=== PATIENT | female | born 1950 | race Caucasian/White ===

== ENCOUNTER → 2016-05-25 15:23 | Outpatient (CLI) | payer MEDICARE, OTHER ==
[~2016-05-25 15:23] MED LIST: BAYER CHEWABLE81 MG PO; LASIX20 MG PO; LIPITOR10 MG PO; LISINOPRIL10 MG PO; OMEPRAZOLE20 M1 PO
[2016-07-24 09:07] VITALS: BMI 30.1
== END | disposition home or self-care (01) ==
LOC: D.ER 14:41 → D.CT 15:23 → EDBD 15:30 → EDSTATUS 15:30
DX: R06.00 Dyspnea, unspecified (principal)

== ENCOUNTER 2016-07-24 07:59 | Outpatient (CLI) | payer MEDICARE, OTHER ==
[~2016-07-24] VITALS: Ht 160 cm; Wt 77.3 kg
--- NOTE | ~2016-07-24 | HEMODYNAMI ---
PATIENT:ARGENIS NAVA MEDICAL RECORD: [id number] : 48 LOCATION:[facility] ADMISSION DATE: 07/24/16 Generatedon:07/24/201611:05 Patient name: ARGENIS NAVA Patient #: [id number] : 1950 Date of study: 07/24/2016 Page: Of Hemodynamic Procedure Report Patient Data Patient Demographics Procedure consent was obtained First Name: ARGENIS Gender: Female Last Name: ELIJAH : 1950 Patient #: [id number] Age: 66 year(s) Race: SSN: [id number] Additional ID: [id number] Contact details Address: [address] [place] [address] State: [place] City: [facility] Zip code: [address] Admission Admission Data Admission Date: 07/24/2016 Admission Time: 7:59 Arrival Date: 07/24/2016 Arrival Time: 10:00 Admit Source: Other Insurance Payor: Medicare Height (in.): 65 BSA: 1.85 (m2) Height (cm.): 165.1 BMI: 28.29 (kg/m2) Weight (lbs.): 170 Weight (kg.): 77.11 Lab Results Lab Result Date: 07/24/2016 Lab Result Time: 0:00 Biochemistry Name Units Result Min Max BUN mg/dl 23 --(----)-* 7 18 Creatinine mg/dl 0.9 --(-*--)-- 0.6 1.3 CBC Name Units Result Min Max Hemoglobin g/dl 12.6 -*(----)-- 13.5 17.5 Procedure Procedure Types Cath Procedure Diagnostic Procedure [facility] w/Coronaries Miscellaneous Procedures Procedure Description Procedure Date Procedure Date: 07/24/2016 Procedure Start Time: 10:50 Procedure End Time: 10:56 Procedure Staff Name Function Ronal Koenig MD Performing Physician Rosalina Hyde RT Scrub Viviane López RN Nurse Danielle Beverly RT Monitor Procedure Data Cath Procedure Fluoroscopy Diagnostic fluoroscopy Total fluoroscopy Time: 0.9 time: 0.9 min min Diagnostic fluoroscopy Total fluoroscopy dose: 75 dose: 75 mGy mGy Contrast Material Contrast Material Type Amount (ml) Isovue 300 49 Entry Location Entry Primary Successful Side Size Upsize Upsize Entry Closure Succes sful Closure Location (Fr) 1 (Fr) 2 (Fr) Remarks Device Remarks Femoral Right 5 Fr Exoseal artery Estimated blood loss: 10 ml Diagnostic catheters Device Type Used For End Catheter Placement Cordis 5Fr Pigtail Ventriculography Catheter (MP) Cordis 5Fr JL 4.0 Procedure Catheter (MP) Cordis 5Fr 3DRC Catheter Procedure (MP) Procedure Complications No complications Procedure Medications Medication Administration Route Dosage Oxygen NC 2 l/min Lidocaine 2% added to field 20 Heparin Flush Bag added to field 2 bags (1000units/500ml NS) 0.9% NaCl I.V. 100 ml/hr Benadryl I.V. 50 mg Versed I.V. 2 mg Fentanyl I.V. 100 mcg Versed I.V. 2 mg Fentanyl I.V. 100 mcg Versed I.V. 0.5 mg Fentanyl I.V. 25 mcg Fentanyl I.V. 25 mcg Hemodynamics Rest BSA: 1.85 (m2) HGB: 12.6 (g/dl) O2 Consumption: Estimated: 166.95 (ml/min) O2 Co nsumption indexed: Estimated:90.24 (ml/min/m) Heart Rate: 63 (bpm) Snapshots Pre Cath Intra NCS Post Cath Vital Signs Time Heart Resp SPO2 NIBP (mmHg) Rhythm Pain Sedation Rate (ipm) (%) Status Level (bpm) 10:09:45 65 15 98 141/66(136) NSR 0 (11) 10(A) , No pain 10:14:05 67 18 100 134/68(108) NSR 0 (11) 10(A) , No pain 10:18:23 58 17 96 123/63(85) NSR 0 (11) 10(A) , No pain 10:22:43 73 18 97 112/64(81) NSR 0 (11) 10(A) , No pain 10:27:52 62 16 98 130/67(100) NSR 0 (11) 10(A) , No pain 10:32:17 64 17 99 123/65(85) NSR 0 (11) 10(A) , No pain 10:36:39 63 16 98 118/62(92) NSR 0 (11) 10(A) , No pain 10:40:57 64 16 100 113/65(85) NSR 0 (11) 10(A) , No pain 10:45:15 64 17 99 123/61(103) NSR 0 (11) 10(A) , No pain 10:49:35 63 19 100 119/62(82) NSR 0 (11) 9(A) , No pain 10:53:51 63 16 94 130/74(101) NSR 0 (11) 9(A) , No pain 11:03:10 69 17 97 134/82(131) NSR 0 (11) 10(A) , No pain Medications Time Medication Route Dose Verified Delivered Reason Notes Effec tiveness by by 0:53:42 Fentanyl I.V. 25 Ronal Buffie for mcg Arya López RN sedation 10:27:37 Oxygen NC 2 Ronal Buffie used for l/min Arya López RN procedure 10:27:43 Lidocaine 2% added 20ml Ronal Buffie used for to vial Arya López RN procedure field 10:27:53 Heparin Flush added 2 Ronal Buffie used for Bag to bags Arya López RN procedure (1000units/500ml field NS) 10:28:07 0.9% NaCl I.V. 100 Ronal Buffie Per ml/hr Arya López RN physician 10:28:24 Benadryl I.V. 50 mg Ronal Buffie used for Arya López RN procedure 10:44:03 Versed I.V. 2 mg Ronal Buffie for Arya López RN sedation 10:44:10 Fentanyl I.V. 100 Ronal Buffie for mcg Arya López RN sedation 10:49:38 Versed I.V. 2 mg Ronal Buffie for Arya López RN sedation 10:49:42 Fentanyl I.V. 100 Ronal Buffie for mcg Arya López RN sedation 10:53:24 Fentanyl I.V. 25 Ronal Buffie for mcg Arya López RN sedation 10:53:37 Versed I.V. 0.5 Ronal Buffie for mg Tauth MD López RN sedation Procedure Log Time Note 0:53:42 Fentanyl 25 mcg I.V. was administered by Viviane López RN; for sedation; 9:47:23 Informed consent obtained and on chart 9:47:28 Diagnostic Cath Status : Elective 9:48:05 Admit Source: Other 9:48:09 Arrival Date: 07/24/2016 10:00:00 AM 9:48:17 Insurance Payor : Medicare 9:48:30 Viviane López RN sent for patient. Start room use. 9:48:32 Time tracking: Regular hours 9:48:37 Plan of Care:Hemodynamics will remain stable., Cardiac rhythm will remain stable., Comfort level will be maintained., Respiratory function will remain adequate., Patient/ family verbilizes understanding of procedure., Procedure tolerated without complication., Recovers from procedure without complications.. 10:01:33 Lab Result : Creatinine 0.9 mg/dl 10:01:33 Lab Result : BUN 23 mg/dl 10:01:33 Lab Result : Hemoglobin 12.6 g/dl 10:01:48 Patient received from Pre/Post Procedure Room to [facility] 3 Alert and oriented. Tansferred to table in Supine position. 10:01:50 Warm blankets applied, and sara hugger turned on for patient comfort. 10:01:51 Correct patient and procedure confirmed by team. 10:02:05 H&P Date Dictated: 07/24/2016 Within 30 days and on chart., H&P Addendum completed by physician on day of procedure. (MUST COMPLETE FOR ALL OUTPATIENTS). 10:02:13 Pre-procedure instructions explained to patient. 10:02:15 Family in waiting room. 10:02:17 Patient NPO since Midnight. 10:08:30 ECG and BP/O2 sat monitors applied to patient. 10:08:31 Vital chart was started 10:08:32 Baseline sample Acquired. 10:08:35 Rhythm: sinus rhythm 10:08:37 Full Disclosure recording started 10:08:43 Is the patient allergic to Iodine/contrast media? No. 10:08:44 Was the patient premedicated? No 10:08:46 Is patient on blood thinner?No 10:09:06 Patient diabetic? No. 10:09:09 Previous problem with sedation/anesthesia? No ? 10:09:11 Snore? Yes 10:09:13 Sleep apnea? No 10:09:19 Deviated septum? No 10:09:20 Opens mouth fully? Yes 10:09:32 Sticks out tongue? Yes 10:09:34 Airway obstruction? No ? 10:09:39 Dentures? No ? 10:09:43 Pre procedure: right dorsailis pedis pulse 1+ Palpable, but thready & weak; easily obliterated 10:09:45 Patient pain scale 0/10 ?. 10:09:50 IV patent on arrival in left antecubital with 0.9% NaCl at [facility]. 10:09:52 Lab results completed and on chart. 10:09:55 Right groin area was prepped with chlora-prep and draped in sterile fashion 10::56 Alarms reviewed by R. N. 10::56 Sharps counted by scrub and verified by R.N. 10:13:41 Baseline sample Acquired. 10:13:54 Physician paged 10:17:36 Patient Height : 165.1 cm 10:17:42 Patient Weight : 77.11 kg 10:17:47 Procedure type changed to Cath procedure, Diagnostic procedure, LHC, LHC w/Coronaries, Miscellaneous Procedures 10:21:01 Use device set Femoral Dx 10:21:02 Acist Syringe opened to sterile field. 10:21:02 Bag Decanter opened to sterile field. 10:21:03 Medline Cath Pack opened to sterile field. 10:21:03 Terumo 5Fr [place] Sheath opened to sterile field. 10:21:04 St Kvng 260cm J .035 wire opened to sterile field. 10:21:05 Acist Hand Control opened to sterile field. 10:21:06 Acist Manifold opened to sterile field. 10:21:06 Diagnostic Infinity 5Fr Multipack catheter opened to sterile field. 10:21:06 Tegaderm 4 x 4 opened to sterile field. 10:26:28 Zero performed for pressure channel P1 10:27:02 Zero performed for pressure channel P1 10:27:37 Oxygen 2 l/min NC was administered by Viviane López RN; used for procedure; 10:27:43 Lidocaine 2% 20ml vial added to field was administered by Viviane López RN; used for procedure; 10:27:53 Heparin Flush Bag (1000units/500ml NS) 2 bags added to field was administered by Viviane López RN; used for procedure; 10:28:07 0.9% NaCl 100 ml/hr I.V. was administered by Viviane López RN; Per physician; 10:28:24 Benadryl 50 mg I.V. was administered by Viviane López RN; used for procedure; 10:42:09 Physician arrived 10:43:28 --------ALL STOP TIME OUT------ 10:43:29 Final Timeout: patient, procedure, and site verified with staff and physician. All members of the team are in agreement. 10:43:31 Right groin site verified by team. 10:43:35 Physical assessment completed. ASA score P 2 - A patient with mild systemic disease as per Ronal Koenig MD. 10:43:39 Sedation plan: IV Moderate Sedation Versed, Fentanyl 10:44:03 Versed 2 mg I.V. was administered by Viviane López RN; for sedation; 10:44:10 Fentanyl 100 mcg I.V. was administered by Viviane López RN; for sedation; 10:49:38 Versed 2 mg I.V. was administered by Viviane López RN; for sedation; 10:49:42 Fentanyl 100 mcg I.V. was administered by Viviane López RN; for sedation; 10:50:36 Procedure started. 10:50:39 Local anesthetic to right femoral artery with Lidocaine 2% by Ronal Koenig MD.INITIAL ACCESS ONLY 10:51:09 A 5 Fr sheath was inserted into the Right Femoral artery 10:51:38 A Cordis 5Fr Pigtail Catheter (MP) was advanced over the wire and used for Ventriculography. 10:51:42 LV angiography performed. 10:52:03 EF : 60 % 10:52:07 Catheter removed. 10:52:26 A Cordis 5Fr JL 4.0 Catheter (MP) was advanced over the wire and used for Procedure. 10:53:24 Fentanyl 25 mcg I.V. was administered by Viviane López RN; for sedation; 10:53:37 Versed 0.5 mg I.V. was administered by Viviane López RN; for sedation; 10:53:48 Catheter removed. 10:53:55 A Cordis 5Fr 3DRC Catheter (MP) was advanced over the wire and used for Procedure. 10:54:05 Catheter removed. 10:54:13 Cordis 5Fr Exoseal opened to sterile field. 10:54:25 Sheath removed intact; hemostasis achieved with Exoseal to the Right Femoral artery. 10:54:40 Procedure ended.(Physican Out) 10:55:04 Fluoroscopy time 00.90 minutes. 10:55:10 Fluoroscopy dose: 75 mGy 10:55:10 Flurop Dose total: 75 10:55:26 Contrast amount:Isovue 300 49ml. 10:55:27 Sharps counted by scrub and verified by R.N. 10:55:29 Insertion/operative site no bleeding no hematoma. 10:55:32 Post-op/insertion site Right Femoral artery dressed using a 4 x 4 and Tegaderm. 10:55:35 Post Procedure Pulses reassessed and unchanged 10:55:55 Post procedure rhythm: unchanged. 10:56:00 Estimated blood loss: 10 ml 10:56:03 Post procedure instruction explained to patient.Patient verbalizes understanding. 10:56:08 Procedure and supply charges have been captured, reviewed, submitted and are correct. 10:56:28 Procedure Complication : No complications 10:56:33 Vital chart was stopped 10:56:34 See physician's report for complete and final results. 10:56:36 Report given to Pre/Post Procedure Room. 10:56:41 Patient transfered to Pre/Post Procedure Room with Stretcher. 10:56:42 Procedure ended. 10:56:42 Full Disclosure recording stopped 10:56:48 End room use (Document Last) Device Usage Item Name Manufacture Quantity Catalog Hospital Part Current Minimal Lo t# / Number Charge Number Stock Stock Serial# Code Acist Acist 1 14150 073743 [id number] [id number] 20 Syringe [employer] Bag Microtek 1 2001S 011940 11980 403769 5 Decanter [employer] Medline Cardinal 1 [id number] 85456 620700 5 Astaro Terumo 5Fr Terumo 1 [id number] 926350 656712 116918 [address] [place] [address] Kvng 1 650016 510738 321553 718804 30 260cm J .035 wire Acist Hand Acist 1 11046 422418 809780 102921 5 Control [employer] Inc Acist Acist 1 33656 096147 580805 095009 5 Manifold Medical [employer] Inc Diagnostic Cardinal 1 [id number] 851903 73044 017819 30 HandMinderity Health 5Fr Multipack catheter Tegaderm 4 3M 1 1626W 680723 169666 499162 5 x 4 Cordis 5Fr Cardinal 1 [id number] 5 Pigtail Health Catheter (MP) Cordis 5Fr Cardinal 1 146010 5 JL 4.0 Health Catheter (MP) Cordis 5Fr Cardinal 1 447139 5 3DRC Health Catheter (MP) Cordis 5Fr Cardinal 1 EX500 163709 539026 738478 10 [email or web address] Signature Audit [place] Stage Time Signature Unsigned Intra-Procedure 07/24/2016 Danielle Beverly 11:05:23 AM RT(R) Signatures Monitor : Danielle Beverly Signature : RT Date : Time : [address] [address] [place] [address]
--- NOTE | ~2016-07-24 | HP ---
PATIENT: ARGENIS VALDEZ MEDICAL RECORD: [id number] ACCOUNT: [id number] LOCATION:[facility] : 48 ADMISSION DATE: 07/24/16 HISTORY AND PHYSICAL EXAMINATION DIAGNOSES: 1. Angina. 2. Abnormal nuclear stress test suggestive of anterior and inferior ischemia. 3. Hypertension. 4. Hyperlipidemia. 5. Gastroesophageal reflux disease. HISTORY OF PRESENT ILLNESS: Mrs. Valdez presents with anginal symptomatology, underwent risk stratification with stress testing Cardiolite imaging revealing significant perfusion defects anteriorly and inferiorly suggestive of multivessel coronary artery disease. She continues to have shortness of breath and anginal symptomatology, and is now brought for cardiac catheterization. PHYSICAL EXAMINATION: GENERAL APPEARANCE: Well-nourished, well-developed, appears stated age. Level of distress, comfortable. PSYCHIATRIC: Mental status, alert, normal affect. Orientation, oriented to time, place and person. EYES: Lids and conjunctiva, noninjected. No discharge, no pallor. ENT: Lips, teeth, gums, normal dentition. Oropharynx, no cyanosis, no pallor. NECK: Carotid arteries, bilateral normal upstroke, no bruits, no thrills. JUGULAR VEINS: No jugular venous pressure or distention. CERVICAL LYMPH NODES: Nontender, nonenlarged. THYROID: Not enlarged. Nontender. No nodules. LUNGS: Respiratory effort, unlabored. CHEST: Normal curvature. No thoracic deformity. No chest wall tenderness. Percussion, resonant. Auscultation, clear. No wheezes, no rales, no rhonchi. CARDIOVASCULAR: Precordial exam, nondisplaced. No heaves or pericardial thrills. Rate and rhythm, regular. Heart sounds, normal S1, normal S2. No S3, no gallop, no rub. Systolic murmur, not heard. Diastolic murmur, not heard. EXTREMITIES: No cyanosis, no edema. Peripheral pulses, full and equal in all extremities, except as noted. No bruits appreciated. ABDOMEN: Soft, nondistended. Normal aorta. No bruit. Nontender. No masses. Liver, nontender, no hepatomegaly. Spleen, nontender, no splenomegaly. MUSCULOSKELETAL: No joint tenderness. No joint swelling. No erythema. NEUROLOGICAL: Normal gait, normal strength, normal tone. SKIN: Warm and dry. REVIEW OF SYSTEMS: The patient reports easy bruising but reports no swollen glands. The patient reports no fever, no night sweats, no significant weight gain, no significant weight loss. No significant exercise tolerance. The patient reports no dry eyes, no irritation, no vision change. Patient reports no difficulty hearing and no ear pain. Patient reports no frequent nose bleeds or nose and sinus problems. Patient reports on arm pain on exertion. No shortness of breath while lying down. No history of heart murmur. Patient reports no cough, no wheezing or coughing up blood. Patient reports no abdominal pain, no vomiting. Normal appetite. No diarrhea and not vomiting blood. No nausea and no constipation. Patient reports no incontinence. No difficulty urinating. No hematuria. No increased frequency. Patient reports no muscle aches. No weakness, no arthralgias, no back pain. No swelling of the HISTORY AND PHYSICAL [id number] ELIJAH,ARGENIS extremities. Patient reports no abnormal mole, no jaundice, no rashes. Reports no loss of consciousness. No weakness and no numbness. No seizures, dizziness, or headaches. The patient reports no depression, no sleep disturbance, feeling safe in a relationship and no alcohol abuse. Patient reports on fatigue. Reports no runny nose or sinus pressure. No itching, no hives, and no frequent sneezing. OVERALL IMPRESSION: Anginal symptomatology with abnormal nuclear stress test, high likelihood of hemodynamically significant coronary artery disease. We will proceed with coronary angiography. Further care depends upon findings of the angiography. TRANSINT:[id number] Voice Confirmation ID: [id number] DOCUMENT ID: [id number] MIRIAN BYERS MD CC: [id number] DICTATION DATE: 07/24/1659 BOOK SEWING MACHINE OPERATOR: 07/24/16913 [facility] [address] [place] [address]
--- NOTE | ~2016-07-24 | OP ---
PATIENT NAME: ARGENIS NAVA MEDICAL RECORD: [id number] :48 LOCATION:D.[facility] ADMISSION DATE: SURGEON: MIRIAN BYERS MD DATE OF OPERATION: 07/24/2016 PROCEDURES: 1. Left heart catheterization. 2. Selective coronary angiography. 3. Left ventriculogram. INDICATIONS: Angina and coronary artery disease. PROCEDURE IN DETAIL: After informed consent was obtained and after a detailed explanation of risks, benefits as well as alternative therapies, the patient elected to proceed with angiogram and heart catheterization. The right femoral area was prepped and draped in normal sterile fashion. The right femoral artery was cannulated via modified Seldinger technique with placement of 5-Ser[place] sheath. All catheters exchanged through this sheath. FINDINGS: The left ventriculogram was performed in standard 30-degree GARNETT view, reveals good cardiac wall motion throughout all segments. Overall ejection fraction estimated at 60%. SELECTIVE CORONARY ANGIOGRAPHY: Left main, left anterior descending, left circumflex, and right coronary artery are all smooth-walled vessels with no angiographic evidence of coronary artery disease. OVERALL IMPRESSION: 1. No angiographic evidence of coronary artery disease. 2. Normal left heart pressures. 3. Normal left ventricular systolic function. Chest pain is noncardiac in etiology. No further cardiac workup needs to be ascertained. TRANSINT:[id number] Voice Confirmation ID: [id number] DOCUMENT ID: [id number] MIRIAN BYERS MD CC: [id number] DICTATION DATE: 07/24/16 1057 NIGHTCLUB MANAGER: 07/24/16 1159 [facility] [address] [place] [address]
[2016-07-24] MEDS ORDERED: BAYER CHEWABLE81 MG PO (09:00)
[2016-07-24] MEDS ORDERED: LIPITOR10 MG PO (09:00)
[2016-07-24] MEDS ORDERED: LASIX20 MG PO (09:01)
[2016-07-24] MEDS ORDERED: LISINOPRIL10 MG PO (09:01)
[2016-07-24] MEDS ORDERED: OMEPRAZOLE20 M1 PO (09:02)
[2016-07-24 09:07] VITALS: Ht 160 cm; Wt 77.3 kg
[2016-07-24 09:18] LABS: HEMATOCRIT 37.2 % (36.0-48.0); HEMOGLOBIN 12.6 g/dL (12-16); LYMPHOCYTES 25.3 % (15-50); MCH 29.4 pg (26.0-34.0); MCHC 33.9 g/dL (31.0-37.0); MCV 86.9 fL (80.0-100.0); MEAN PLATELET VOLUME 8.1 fL (7.4-10.4); NEUTROPHILS 67.7 % (40-80); PLATELET COUNT 295 10x3/uL (130-400); RBC 4.28 10x6/uL (4.00-5.40); RDW 12.5 % (11.5-14.5)
[2016-07-24 09:52] LABS: ANION GAP 13.5 mmol/L (8-16); CALCIUM 9.9 mg/dL (8.5-10.1); CARBON DIOXIDE 27.8 mmol/L (21.0-32.0); CREATININE - SERUM 0.9 mg/dL (0.6-1.3); POTASSIUM - SERUM 4.3 mmol/L (3.5-5.1)
--- NOTE | 2016-07-24 11:35 | NUR ---
RESTING IN BED WITH EYES CLOSED. VSS. 2L NC, NO RESP DISTRESS NOTED. RIGHT GROIN 5F EXOSEAL CDI, NO BLEEDING OR HEMATOMA NOTED. NO C/O CHEST PAIN OR NAUSEA. INSTRUCTED PT TO KEEP HEAD FLAT ON PILLOW AND RIGHT LEG STRAIGHT.
--- NOTE | 2016-07-24 12:05 | NUR ---
ROOM AIR, NO RESP DISTRESS NOTED. VSS. RIGHT GROIN 5F EXOSEAL CDI, NO BLEEDING OR HEMATOMA NOTED. NO C/O NAUSEA OR CHEST PAIN. WILL CONTINUE TO MONITOR.
--- NOTE | 2016-07-24 12:35 | NUR ---
HOB ELEVATED 30 DEGREES. RIGHT GROIN 5F EXOSEAL CDI, NO BLEEDING OR HEMATOMA NOTED.
--- NOTE | 2016-07-24 12:52 | NUR ---
LEFT AC PIV D/C'D WITH CATHETER INTACT, BAND AID TO SITE. UP TO BEDSIDE TO GET DRESSED.
--- NOTE | 2016-07-24 13:09 | NUR ---
D/C INSTRUCTIONS DISCUSSED WITH PATIENT AT BEDSIDE. R GROIN REMAINS C/D/I WITH NO HEMATOMA OR BLEEDING. WHEELED OUT VIA WHEELCHAIR BY CATH TEAM.
== END 2016-07-24 13:10 | disposition home or self-care (01) ==
LOC: D.CATH 07:59
PROVIDERS: Internal Medicine Interventional Cardiology
DX: R94.30 Abnormal result of cardiovascular function study, unspecified (principal); R06.02 Shortness of breath; E78.5 Hyperlipidemia, unspecified; I10 Essential (primary) hypertension; Z87.891 Personal history of nicotine dependence

== ENCOUNTER → 2017-05-22 15:51 | Outpatient (CLI) | payer MEDICARE, OTHER ==
[2016-07-24 09:07] VITALS: BMI 30.1
[2017-05-22 16:08] LABS: ANION GAP 14.2 mmol/L (8-16); CALCIUM 8.9 mg/dL (8.5-10.1); CARBON DIOXIDE 25.8 mmol/L (21.0-32.0); CREATININE - SERUM 1.1 mg/dL (0.6-1.3)
== END | disposition home or self-care (01) ==
LOC: D.LABREF 15:51
PROVIDERS: Nurse Practitioner
DX: I10 Essential (primary) hypertension (principal)

== ENCOUNTER → 2018-01-16 15:02 | Outpatient (CLI) | payer MEDICARE, OTHER ==
[2016-07-24 09:07] VITALS: BMI 30.1
== END | disposition home or self-care (01) ==
LOC: D.CT 15:02
DX: R31.9 Hematuria, unspecified (principal)